=== PATIENT | female | born 2000 | race Caucasian/White ===

== ENCOUNTER 2019-06-16 23:04 | Emergency (ER) | payer OTHER ==
[~2019-06-16] VITALS: Ht 162.6 cm; Wt 86.2 kg
[~2019-06-16 23:04] MED LIST: ACETAMINOP160 MG/5 M PO; AMOXICILLI400 MG/5 M PO; IBUPROFEN
[2019-06-17 02:21] VITALS: BP 128/65
== END 2019-06-17 02:23 | disposition home or self-care (01) ==
LOC: ER 23:04
DX: T16.1XXA Foreign body in right ear, initial encounter (principal); X58.XXXA Exposure to other specified factors, initial encounter